=== PATIENT | female | born 1995 | race Caucasian/White ===

== ENCOUNTER 2020-06-25 07:42 | Emergency (ER) | payer BC ==
[~2020-06-25] VITALS: Ht 170.2 cm; Wt 54.4 kg
[2020-06-25] MEDS ORDERED: KETO10TA2 PO (10:31)
[2020-06-25] MEDS ORDERED: AMOX1TAB5 PO (10:31)
== END 2020-06-25 10:40 | disposition home or self-care (01) ==
LOC: ER 07:42
DX: J03.90 Acute tonsillitis, unspecified (principal); Z03.818 Encounter for observation for suspected exposure to other biological agents ruled out

== ENCOUNTER 2020-11-27 14:43 | Emergency (ER) | payer BC ==
[~2020-11-27] VITALS: Ht 167.6 cm; Wt 52.2 kg
[~2020-11-27 14:43] MED LIST: AMOX1TAB5 PO; KETO10TA2 PO
== END 2020-11-27 19:35 | disposition home or self-care (01) ==
LOC: ER 14:43
DX: A04.8 Other specified bacterial intestinal infections (principal); R10.84 Generalized abdominal pain; R10.2 Pelvic and perineal pain

== ENCOUNTER 2021-08-20 14:10 | Emergency (ER) | payer BC ==
[~2021-08-20] VITALS: Ht 170.2 cm; Wt 54.4 kg
== END 2021-08-20 17:16 | disposition home or self-care (01) ==
LOC: ER 14:10
DX: N30.90 Cystitis, unspecified without hematuria (principal)